=== PATIENT | male | born 1960 | race Two or more races ===

== ENCOUNTER → 2016-12-28 | Outpatient (CLI) | payer OTHER ==
[~2016-12-28] MED LIST: AMLO-147 PO; APR50 PO; ASPI325T32 PO; CARV25TA79 PO; HYDR-905 PO; TRAM50TA2 PO
--- NOTE | 2016-12-28 15:50 | RADRPT ---
PROCEDURE: XR left knee. CLINICAL INDICATION: Knee pain. TECHNIQUE: AP weightbearing, lateral weightbearing and sunrise views are available for review. COMPARISON: 07/20/2016 FINDINGS: There is a total knee replacement. There is no evidence of loosening of the prosthesis. The osseous structures are normal in mineralization, architecture and alignment No acute fracture or dislocatio n is seen.No osseous lesions are identified. The soft tissues are unremarkable . there is a small s uprapatellar joint effusion. IMPRESSION: Small suprapatellar joint effusion. Unremarkable total knee replacement. RPTAT: [facility] .Wesly Narayanan MD, MD Date Time Electronically viewed and signed by .Wesly Narayanan MD, MD on 12/28/2016 15:50 .B/
== END | disposition home or self-care (01) ==
LOC: HKI 15:04
PROVIDERS: ATTEND Orthopaedic Surgery
DX: Z47.1 Aftercare following joint replacement surgery (principal); Z96.652 Presence of left artificial knee joint
CPT/HCPCS: 73562; Z7500; G0463